=== PATIENT | female | born 1980 | race Caucasian/White ===

== ENCOUNTER 2019-04-15 07:26 | Outpatient (CLI) | payer BC ==
--- NOTE | 2019-04-15 08:56 | ULT ---
GALLBLADDER ULTRASOUND: Date: 04/15/2019 HISTORY: Epigastric pain. COMPARISON: 04/14/2012. FINDINGS: Slightly coarse liver echogenicity. Gallbladder is borderline distended. There is at least one gallst one down in the region of the neck of the gallbladder measuring 1.2 cm in size. This gallstone is mob ile. Negative Mcgee's sign. No abnormal gallbladder wall thickening or pericholecystic fluid. Common bile duct 0.4 cm. Visualized pancreas and right kidney are unremarkable. IMPRESSION: Very slightly coarse liver echogenicity. Single gallstone with borderline gallbladder distention, but no evidence for acute cholecystitis or common duct dilatation. POS: OFF
== END 2019-04-15 07:27 | disposition home or self-care (01) ==
LOC: BICULT 07:26
PROVIDERS: ATTEND Internal Medicine Gastroenterology
DX: R10.13 Epigastric pain (principal); K80.20 Calculus of gallbladder without cholecystitis without obstruction; K76.89 Other specified diseases of liver; K82.8 Other specified diseases of gallbladder
CPT/HCPCS: 76705

== ENCOUNTER 2019-05-20 07:50 | Outpatient (CLI) | payer BC ==
[2019-05-20 13:44] LABS: #Basophils 0.1 thou/uL (0.0-0.2); #Eosinphils 0.3 thou/uL (0.0-0.7); #Lymphocytes 1.8 thou/uL (1.20-3.40); #Monocytes 0.5 thou/uL (0.11-0.59); #Neutrophils 4.9 thou/uL (1.40-6.50); %Basophils 0.8 % (0.0-1.0); %Eosinophils 3.5 % (0.0-10.0); %Lymphocytes 23.6 % (21.0-51.0); %Neutrophils 65.1 % (42.0-75.0); Hemoglobin 14.5 g/dL (12.0-16.0); Mean Corpuscular HGB CONC 33.2 g/dL (32.0-36.0); Mean Corpuscular Hemoglobin 31.5 pg (27.0-31.0); Mean Platelet Volume 7.5 fL (7.4-10.4); Platelet Count 332 thou/uL (130-400); White Blood Cell (WBC) Count 7.5 thou/uL (4.8-10.8)
[2019-05-20 14:17] LABS: ALT (SGPT) 35 U/L (8-55); AST (SGOT) 28 U/L (5-34); Albumin 4.1 g/dL (3.5-5.0); Alkaline Phosphatase 54 U/L (40-110); Anion Gap 13 mmol/L (10-20); BUN (Urea Nitrogen) 10 mg/dL (7.0-18.7); Bilirubin, Total 0.6 mg/dL (0.2-1.2); Calc. Creatinine Clearance 0 mL/min (70-130); Calcium 8.7 mg/dL (7.8-10.44); Carbon Dioxide 26 mmol/L (22-29); Chloride 104 mmol/L (98-107); Estimated GFR-MDRD 89; Globulin 2.8 g/dL (2.4-3.5); Glucose 98 mg/dL (70-105); Potassium 3.8 mmol/L (3.5-5.1); Protein, Total 6.9 g/dL (6.0-8.3); Sodium 139 mmol/L (136-145)
[2019-05-20 14:20] LABS: BHCG - Serum Negative (NEGATIVE); Pregs Control Background? CLEAR/WHITE (CLR/WHITE); Pregs Control Bar Appear? YES (CONTROL BAR)
== END 2019-05-20 07:51 | disposition home or self-care (01) ==
LOC: LABBT 07:50
PROVIDERS: ATTEND Specialist
DX: Z01.812 Encounter for preprocedural laboratory examination (principal); K80.20 Calculus of gallbladder without cholecystitis without obstruction
CPT/HCPCS: 80053; 84703; 85025

== ENCOUNTER 2019-05-26 06:35 | Day surgery (SDC) | payer BC ==
[2019-05-20 11:36] VITALS: BMI 34.5
--- NOTE | 2019-05-24 08:33 | HP ---
HISTORY OF PRESENT ILLNESS: Tatyana Reagan is a 38-year-old female, who presents with symptomatic gallstones. She has episodes of right upper quadrant pain, back radiation, nausea. She was recently seen by Dr. Cuellar. Upper endoscopy did not reveal any active ulcer disease. 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 She has been on PPIs for a few years, but became asymptomatic and discontinued these. When she started having episodic pain, she presented to [facility] Emergency Room, started her on PPIs initially, but had recurrent pain, returned to the [facility], had an ultrasound documenting gallstones, normal liver function tests, normal bile duct caliber. She reports to me for consideration of cholecystectomy. She understands the risk of infection, bleeding, reoperation, biliary injury, possibly open procedure. The patient is single. Her mother lives in [place] and will be helping her perioperatively. She wishes to call us to schedule the surgery after confirming with her mother. LABORATORY DATA: On 05/03/2019, [facility] Emergency Room; glucose 108, BUN 7, creatinine 0.7, sodium 136, potassium 3.2, CO2 of 22. White count 6.8, hemoglobin 13, hematocrit 41, platelet count 276,000. Urinalysis unremarkable. PAST SURGICAL HISTORY: In October 2010, laparotomy, pyloric channel ulcer perforation, pyloroplasty, and omental patching. PAST MEDICAL HISTORY: Noncontributory. REVIEW OF SYSTEMS: Noncontributory. SOCIAL HISTORY: Tobacco, none. Alcohol, rarely. MEDICATIONS: None currently. PHYSICAL EXAMINATION: VITAL SIGNS: Weight 249 pounds. Height 5 feet and 11 inches. BMI 35. Blood pressure 119/78, pulse 69, temperature 97.7 degrees. HEAD, EYES, EARS, NOSE, AND THROAT: Unremarkable. LUNGS: Clear to auscultation. CARDIAC: Regular rate and rhythm without murmur or gallop. ABDOMEN: Soft, nontender. Scar in upper midline. EXTREMITIES: Unremarkable. ASSESSMENT AND PLAN: Symptomatic cholelithiasis. Recommend laparoscopic video cholecystectomy. Risks of infection, bleeding, reoperation, visceral injury, possible open procedure discussed. Questions answered. Plan laparoscopic cholecystectomy. Job ID: [id number]
[2019-05-26] MEDS ORDERED: Fentanyl 100 MCG/2 ML VIAL ONE ×3 (07:03→11:28)
[2019-05-26] MEDS ORDERED: Midazolam HCl 2 mg/2 ml Vial ONE ×2 (07:03→08:12)
[2019-05-26] MEDS ORDERED: Bupivacaine PF 0.5% 30 ML VIAL ONE (07:11)
[2019-05-26] MEDS ORDERED: Lidocaine 1% w/Epinephrine 1:100K 20 ML VIAL ONE (07:11)
[2019-05-26] MEDS ORDERED: Ketorolac Tromethamine 30 MG/ML VIAL ONE ×2 (07:24→09:39)
[2019-05-26] MEDS ORDERED: Acetaminophen 500 MG TAB ONE (07:25)
[2019-05-26] MEDS ORDERED: Dexamethasone 20 MG/5 ML VIAL ONE (09:39)
[2019-05-26] MEDS ORDERED: Rocuronium Bromide 10 MG/ML (10ML VIAL) ONE (09:39)
[2019-05-26] MEDS ORDERED: Glycopyrrolate 0.2 MG/ML 5 ML SYRINGE ONE (09:39)
[2019-05-26] MEDS ORDERED: diphenhydrAMINE 50 MG/ML VIAL ONE (09:39)
[2019-05-26] MEDS ORDERED: Ondansetron PF 4 MG/2 ML Vial ONE (09:39)
[2019-05-26] MEDS ORDERED: PROPOFOL 200 MG/20 ML VIAL ONE (09:39)
[2019-05-26] MEDS ORDERED: HYDROcodone/Acetaminophen 5/325 mg Tablet ONE (12:51)
--- NOTE | 2019-05-26 13:55 | OP ---
DATE OF PROCEDURE: 05/26/2019 PREOPERATIVE DIAGNOSES: 1. Cholecystitis. 2. Cholelithiasis. 3. Prior history of perforated duodenal ulcer with pyloroplasty and omental patch. POSTOPERATIVE DIAGNOSES: 1. Cholecystitis. 2. Cholelithiasis. 3. Prior history of perforated duodenal ulcer with pyloroplasty and omental patch. 4. Adhesions from prior surgery. PROCEDURE PERFORMED: 1. Laparoscopic adhesiolysis. 2. Gain access to the opposite site. 3. Laparoscopic cholecystectomy. Note, extra 5 port required in the right lower quadrant for adhesiolysis. ANESTHESIA: General, local with 0.5% Marcaine 30 mL, mixed with 1% Xylocaine with epinephrine 20 mL. DESCRIPTION OF PROCEDURE: The patient was taken to the operating room where under general anesthesia, abdomen was prepared with ChloraPrep and draped in routine fashion. Local anesthetic mixture was infiltrated into the skin and subcutaneous tissue about each port site. Infraumbilical incision was made. Pneumoperitoneum to 15 mmHg obtained with the Veress needle, replaced with a 5 port. Video laparoscope inserted. There were adhesions in the right upper quadrant. Thus, the right lower quadrant lateral incision made and a 5 port placed under laparoscopic visualization. LigaSure used to take the omental lesion from the abdominal wall, edge of the liver, freeing this right upper quadrant. Right lateral subcostal incision was made at midclavicular entrance line and the 5 port was placed. Right subxiphoid incision was made and 11 port placed. The gallbladder was acutely inflamed, thickened wall, edematous with numerous stones. Omentum and stomach and colon were closely adherent. Careful adhesiolysis was carried out with hot scissors and LigaSure, freeing the gallbladder, grasping the fundus selected cephalad. Liver appeared to be normal. Infundibulum dissected free. Cystic artery and duct dissected free. Critical view obtained. Cystic artery and duct double clipped proximally and divided. Gallbladder dissected free from liver bed, obtaining good hemostasis prior to division of final peritoneal attachments. Gallbladder and stones removed, submitted to Pathology. Good hemostasis ensured. Good used to ensure hemostasis. Irrigant and pneumoperitoneum evacuated after GraNee needle used to approximate right subxiphoid 11-mm trocar site with 0 Vicryl. All instruments were removed. All skin incisions irrigated and approximated with interrupted subdermal 4-0 Monocryl and [place] glue applied. Job ID: [id number]
== END 2019-05-26 14:40 | disposition home or self-care (01) ==
LOC: SDC 06:35
PROVIDERS: ATTEND Specialist
PROC: 0FT44ZZ Resection of Gallbladder, Percutaneous Endoscopic Approach (ICD-10-PCS; principal; 2019-05-26)
DX: K80.12 Calculus of gallbladder with acute and chronic cholecystitis without obstruction (principal); K66.0 Peritoneal adhesions (postprocedural) (postinfection); Z79.899 Other long term (current) drug therapy
CPT/HCPCS: 88304; J0690; J1100; J1200; J1885; J2250; J2405; J2704; J3010; S0020